=== PATIENT | female | born 1985 | race African-American/Black ===

== ENCOUNTER 2019-10-27 23:15 | Inpatient (IN) | payer OTHER ==
[2019-10-27] MEDS ORDERED: AMPICILLIN SODIUM 2 GM VIAL ONE (23:58)
--- NOTE | 2019-10-28 00:25 | HP ---
Past Medical History - Primary Care Physician PCP:: Tayo Null E - Admission Chief Complaint: In labor History of Present Illness: Uneventful gestation; at term. GBS pos in urine. [place]. 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: No: Alzheimer's, CVA, Dementia, Migraine, Multiple Sclerosis, Peripheral Neuropathy, Parkinson's, Seizure, Syncope, TIA, Vertigo, Other Cardiovascular: No: AFIB, Aneurysm, Aortic Insufficiency, Aortic Stenosis, CAD, CHF, Deep Vein Thrombosis, HTN, Hyperlipdemia, [place], Mitral Insufficiency, Mitral Stenosis, Murmur, Pulmonary Hypertension, Other Pulmonary: No: Asthma, Bronchitis, Cancer, COPD, O2 Dependent, Pneumonia, Previously Intubated, Pulmonary Embolus, Pulmonary Fibrosis, Sleep Apnea, Other Gastrointestinal: No: Ascites, Cancer, Constipation, Crohn's Disease, Diverticulitis, Diverticulosis, Esophageal Varices, Gastritis, GERD, GI Bleed, Hemorrhoids, Hiatal Hernia, Inflamatory Bowel Disease, Irritable Bowel Disease, Pancreatitis, Peptic Ulcer Disease, Ulcerative Colitis, Other Hepatobiliary: No: Cirrhosis, Cholelithiasis, Cholecystitis, Choledocholithiasis, Hepatitis A, Hepatitis B, Hepatitis C, Other Renal/: No: Renal Failure, Renal Inusuff, BPH, Cancer, Hematuria, Hemodialysis, Neurogenic Bladder, Renal Calculi, UTI, Other Reproductive: No: Ectopic , Endometriosis, Fibroids, PID, Polycystic Ovary Syndrome, Postmenopausal, Other ...Para: 1 Heme/Onc: No: Anemia, B12 Deficiency, Bleeding Disorder, Cancer, Current Chemotherapy, Current Radiation Therapy, Hemochromatosis, Hypercoaguable State, Myeloproliferative Synd, Sickle Cell Disease, Sickle Cell Trait, Thrombocytopenia, Other Infectious Disease: No: AIDS, C-Diff, Herpes Zoster, HIV, MRSA, STD's, Tuberculosis, VREF, Other Psych: No: Addictions, Anxiety, Bipolar, Depression, Panic, Psychosis, Schizophrenia, Other Musculoskeletal: No: Bursitis, Chronic low back pain, Hemiparesis, Hemiplegia, Osteoarthritis, Paraplegia, Other Rheumatology: No: Fibromyalgia, Gout, Lupus, Rheumatoid Arthritis, Sarcoidosis, Vasculitis, Other ENT: No: Allergic Rhinitis, Sinusitis, Other Endocrine: No: Deonte's Disease, Deerfield's Disease, Diabetes Insipidus, Diabetes Mellitus, Hyperparathyroidism, Hyperthyroidism, Hypothyroidism, Osteopenia, SIADH, Other - Past Surgical History Past Surgical History: No: None, AAA Repair, AICD, Amputation, Appendectomy, Arthrosocopy, AV Fistula/Graft, Bariatric Surgery, Breast Biopsy, Bypass, CABG, Carotid Endarterectomy, Cataract Removal, Cholecystectomy, Colectomy, Colonoscopy, Colostomy, Craniotomy, , Cystectomy, Hernia Repair, Hysterectomy, Ileal Conduit, Ileosotomy, Joint Replacement, Kidney Transplant, Laminectomy, Liver Transplant, Mastectomy, Nephrectomy, Oopherectomy, Orchiectomy, Permanent Pacemaker, Prostatectomy, Splenectomy, Stent, Thoracotomy, TURP, Tonsillectomy, Tubal Ligation, Upper Endoscopy, Valve Replacement, Vasectomy, Vein Stripping/Ligation Hx Myomectomy: No Hx Transabdominal Cerclage: No Family Medical History Family History: Unremarkable Review of Systems - Review of Systems Constitutional: reports: No Symptoms Eyes: reports: No Symptoms HENT: reports: No Symptoms Neck: reports: No Symptoms Cardiovascular: reports: No Symptoms Respiratory: reports: No Symptoms Gastrointestinal: reports: No Symptoms Genitourinary: reports: No Symptoms Breasts: reports: No Symptoms Reported Musculoskeletal: reports: No Symptoms Integumentary: reports: No Symptoms Neurological: reports: No Symptoms Endocrine: reports: No Symptoms Hematology/Lymphatic: reports: No Symptoms Psychiatric: reports: No Symptoms Physical Exam - Maternity Constitutional: Yes: Well Nourished, No Distress, Calm Eyes: Yes: WNL, Conjunctiva Clear, EOM Intact HENT: Yes: WNL, Atraumatic, Normocephalic Neck: Yes: WNL, Supple, Trachea Midline Cardiovascular: Yes: WNL, Regular Rate and Rhythm Breast(s): Yes: WNL - Abdominal Exam/OB Fundal Height: 39 Number of Fetuses: Single Presentation: Vertex Contractions: Yes Regularity: Regular Intensity: Mild Monitor Mode: External Heart Rate (range): 140 Heart Rate Location: RU Category: I Accelerations: Uniform Decelerations: None - Vaginal Exam/OB Vaginal Bleeding: No Dilatation (cm): 3 Effacement (%): 50 Amniotic Membrane Status: Intact Presentation: Vertex/Position Station: -1 - Physical Exam Musculoskeletal: Yes: WNL Integumentary: Yes: WNL ...Motor Strength: WNL Psychiatric: Yes: WNL Hemorrhage Risk Assessment - Risk Factors Medium Risk Factors: Yes: None High Risk Factors: Yes: None Risk Score: 1 Risk Level: Medium Risk Problem List - Problems (1) Active labor Code(s): [id number] - Assessment/Plan Attempted AROM; ? Observe. GBS prophylaxis started.
[2019-10-28 00:47] VITALS: BMI 27.9
[2019-10-28] MEDS ORDERED: PCA PUMP NR ONE (01:05)
[2019-10-28] MEDS ORDERED: FENTANYL/BUPIVACAINE/NS/PF - PCEA - 50 ML DISP.SYRIN EP ONE (01:05)
[2019-10-28 01:14] LABS: BASO % 0.8 % (0-2.0); EOS % 0.6 % (0-4.5); HEMATOCRIT 31.2 % (32.4-45.2); HEMOGLOBIN 10.2 GM/dL (10.7-15.3); LYMPH % 19.3 % (8-40); MCH 26.1 pg (25.7-33.7); MCHC 32.7 g/dl (32.0-36.0); MONO % 7.1 % (3.8-10.2); NEUT % 72.2 % (42.8-82.8); PLATELET COUNT 166 K/MM3 (134-434); RDW 15.3 % (11.6-15.6); WHITE BLOOD COUNT 9.7 K/mm3 (4.0-10.0)
[2019-10-28 01:22] LABS: INR 0.86 (0.83-1.09); PROTHROMBIN TIME (PATIENT) 10.1 SEC (9.7-13.0)
[2019-10-28 01:25] LABS: ACTIVATED PTT 20.3 SECONDS (25.2-36.5)
[2019-10-28] MEDS ORDERED: BUPIVACAINE HCL/PF 0.25% (2.5MG/ML) 10 ML VIAL ONE (01:25)
[2019-10-28 01:34] LABS: BLOOD UREA NITROGEN 7.3 mg/dL (7-18); CALCIUM 9.3 mg/dL (8.5-10.1); CREATININE 0.7 mg/dL (0.55-1.3); POTASSIUM 3.9 mmol/L (3.5-5.1)
[2019-10-28] MEDS ORDERED: NALOXONE HCL 0.4 MG/ML VIAL IVPUSH PRN (01:52)
[2019-10-28] MEDS ORDERED: FENTANYL/BUPIVACAINE/NS/PF - PCEA - 50 ML DISP.SYRIN EP SCH ×2 (02:00→03:04)
[2019-10-28] MEDS ORDERED: AMPICILLIN - 2 GM in SODIUM CHLORIDE 100 ML IVPB ONE ×2 (02:28→02:56)
[2019-10-28] MEDS ORDERED: OXYTOCIN 20 UNITS in 0.9% NS 20 UNIT/1,000 ML INFUS.BAG IV ONE (02:40)
--- NOTE | 2019-10-28 02:41 | PN ---
Progress Note, Labor Vaginal Exam #2 Labor Exam Date: 10/28/19 Labor Exam Time: 02:40 Heart Rate (range): 135 Dilatation: 10 Amniotic Membrane Status: Ruptured Presentation: Vertex/Position Station: +2 (SROM right after my attempt. Epidural in place. Will deliver soon.)
[2019-10-28] MEDS ORDERED: OXYTOCIN 30 UNITS in 0.9% NS 30 UNIT/500 ML INFUS.BAG IVPB ONE (03:00)
[2019-10-28] MEDS: OXYTOCIN 20 UNITS in 0.9% NS 20 UNIT/1,000 ML INFUS.BAG IV SCH (03:16)
[2019-10-28] MEDS ORDERED: BISACODYL 10 MG SUPP.RECT RC PRN (03:27)
[2019-10-28] MEDS ORDERED: BENZOCAINE 28 GM HEMORRHOIDAL OINTMENT TP PRN (03:27)
[2019-10-28] MEDS ORDERED: METHYLERGONOVINE MALEATE 0.2 MG/1 ML AMP IM PRN (03:27)
[2019-10-28] MEDS ORDERED: WITCH HAZEL 50% (TUCKS) 40 PAD/JAR PAD TP PRN (03:27)
[2019-10-28] MEDS ORDERED: BENZOCAINE 20% 57 GM BOTTLE TP PRN (03:27)
--- NOTE | 2019-10-28 03:27 | PN ---
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 Delayed cord clamping. No pain.
[2019-10-28] MEDS ORDERED: OXYTOCIN 20 UNITS in 0.9% NS 1000 ML INFUS.BAG IV ONE (03:28)
--- NOTE | 2019-10-28 07:21 | PN ---
Post Progress Note Post Day: 0 Type of Delivery: Vital Signs: Vital Signs Temperature 98.1 F 10/28/19 06:02 Pulse Rate 77 10/28/19 06:02 Respiratory Rate 20 10/28/19 06:02 Blood Pressure 112/71 10/28/19 06:02 O2 Sat by Pulse Oximetry (%) 100 10/28/19 04:30 Breast Exam: Yes: Soft Uterus: Yes: Fundus Firm Abdomen/GI: Yes: Abdomen soft Lochia: Yes: Rubra Lochia, amount: Moderate Extremities: Yes: Calves non-tender Perineum: Yes: Intact - Labs Labs: CBC WBC 9.7 K/mm3 (4.0-10.0) 10/27/19 23:59 RBC 3.90 M/mm3 (3.60-5.2) 10/27/19 23:59 Hgb 10.2 GM/dL (10.7-15.3) L 10/27/19 23:59 Hct 31.2 % (32.4-45.2) L 10/27/19 23:59 MCV 80.0 fl (80-96) 10/27/19 23:59 MCH 26.1 pg (25.7-33.7) 10/27/19 23:59 MCHC 32.7 g/dl (32.0-36.0) 10/27/19 23:59 RDW 15.3 % (11.6-15.6) D 10/27/19 23:59 Plt Count 166 K/MM3 (134-434) 10/27/19 23:59 MPV 11.0 fl (7.5-11.1) 10/27/19 23:59 Absolute Neuts (auto) 7.0 K/mm3 (1.5-8.0) 10/27/19 23:59 Neutrophils % 72.2 % (42.8-82.8) 10/27/19 23:59 Lymphocytes % 19.3 % (8-40) 10/27/19 23:59 Monocytes % 7.1 % (3.8-10.2) 10/27/19 23:59 Eosinophils % 0.6 % (0-4.5) 10/27/19 23:59 Basophils % 0.8 % (0-2.0) 10/27/19 23:59 Nucleated RBC % 0 % (0-0) 10/27/19 23:59 Problem List - Problems (1) Active labor Code(s): GYE0893 - (2) Normal course Code(s): Z39.2 - ENCOUNTER FOR ROUTINE FOLLOW-UP Assessment/Plan Doing well. Discharge tomorrow
[2019-10-28] MEDS: IBUPROFEN 600 MG TABLET (FP) PO PRN (21:45)
[2019-10-28] MEDS: ACETAMINOPHEN 325 MG TABLET (FP) PO PRN (21:47)
--- NOTE | 2019-10-28 22:48 | PN ---
Progress Note (short form) - Note Progress Note: VSS. Doing very well. PE is OK. Discharge in AM Problem List - Problems (1) Active labor Code(s): AWE9581 - (2) Normal course Code(s): Z39.2 - ENCOUNTER FOR ROUTINE FOLLOW-UP
--- NOTE | 2019-10-28 22:51 | DS ---
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 Vital Signs: Vital Signs Temperature 98.0 F 10/28/19 22:00 Pulse Rate 93 H 10/28/19 22:00 Respiratory Rate 18 10/28/19 22:00 Blood Pressure 144/80 10/28/19 22:00 O2 Sat by Pulse Oximetry (%) 100 10/28/19 04:30 Constitutional: Yes: Well Nourished, No Distress, Calm Eyes: Yes: WNL, Conjunctiva Clear, EOM Intact HENT: Yes: WNL, Atraumatic, Normocephalic Neck: Yes: WNL, Supple, Trachea Midline Cardiovascular: Yes: WNL, Regular Rate and Rhythm Respiratory: Yes: WNL, Regular, CTA Bilaterally Gastrointestinal: Yes: WNL ...Rectal Exam: Yes: WNL Renal/: Yes: WNL Breast(s): Yes: WNL Musculoskeletal: Yes: WNL Extremities: Yes: WNL Integumentary: Yes: WNL Neurological: Yes: WNL, Alert, Oriented ...Motor Strength: WNL Psychiatric: Yes: WNL, Alert, Oriented Labs: CBC, BMP 10/27/19 23:59 10/27/19 23:59 Delivery - Delivery Vaginal Delivery: No Problems Type of Anesthesia: Epidural Episiotomy/Laceration: None EBL (cc): 250 Delivery, Single - Stages of Labor Date 1st Stage Initiatied: 10/27/19 Time 1st Stage Initiated: 18:30 Date 2nd Stage Initiated: 10/28/19 Time 2nd Stage Initiated: 02:40 Date of Delivery: 10/28/19 Time of Delivery: 03:12 Time Placenta Delivered: 03:16 Placenta: Yes: Spontaneous, Normal Configuration - 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 Good spirits. Discharge in AM. Instructions given. Discharge Summary Problems reviewed: Yes Reason For Visit: LABOR Current Active Problems Active labor (Acute) Normal course (Acute) Hospital Course: Good. Condition: Good - Instructions Diet, Activity, Other Instructions: Physical activity Resume your normal everyday activity as tolerated no heavy lifting or exercise until seen by your surgeon. You may walk unlimited alicia of and climb stairs. You may resume driving the car when you feel safe and comfortable behind the wheel. No sexual activity as instructed. Wound care If you have a bandage, leave it on, and keep dry for 48-72 hours. After that time discard the outer bandage. If they are tapes on the skin under the out of bandage leave them in place. They will peel off in the next 7 to 10 days. Do Not Peel them off. You may shower the day after surgery. If there are tapes present on the skin, you may shower over them. Diet There are no dietary restrictions. Eat healthy, high-fiber foods. Drink 6 to 8 glasses of liquid each day. This will assist in keeping your bowels are regular. Pain management You may take Tylenol or acetaminophen or Ibuprofen (for example, Motrin, Advil etc.) from my pain prescription medication is ordered should be taken as prescribed for moderate to severe pain. Call MD for any of the following: Severe pain not relieved by medication Fever of 101 or higher Excessive bleeding or drainage on dressing Inability to urinate Disposition: HOME - Home Medications Comprehensive Discharge Medication List: Ambulatory Orders Vits96/Iron Fum/Folic [ Tablet] 1 each PO DAILY 10/28/19
[2019-10-29] MEDS: ACETAMINOPHEN 325 MG TABLET (FP) PO PRN ×2 (02:45→08:00)
[2019-10-29] MEDS: IBUPROFEN 600 MG TABLET (FP) PO PRN ×2 (02:46→08:01)
[2019-10-29] MEDS: OXYTOCIN 20 UNITS in 0.9% NS 20 UNIT/1,000 ML INFUS.BAG IV SCH (04:21)
[2019-10-29 08:39] LABS: EOS % 1.1 % (0-4.5); HEMATOCRIT 29.7 % (32.4-45.2); HEMOGLOBIN 9.6 GM/dL (10.7-15.3); LYMPH % 24.4 % (8-40); MCH 25.7 pg (25.7-33.7); MCHC 32.2 g/dl (32.0-36.0); MEAN CELL VOLUME 79.6 fl (80-96); MEAN PLT VOLUME 10.2 fl (7.5-11.1); MONO % 6.2 % (3.8-10.2); NEUT % 67.3 % (42.8-82.8); PLATELET COUNT 154 K/MM3 (134-434); RBC 3.73 M/mm3 (3.60-5.2); RDW 15.4 % (11.6-15.6); WHITE BLOOD COUNT 10.5 K/mm3 (4.0-10.0)
[2019-10-29 09:34] VITALS: BP 109/66; PULSE 82; TEMP 97.9
[2019-10-29] MEDS ORDERED: SENNOSIDES/DOCUSATE COMBO (SENNA PLUS) TABLET (UD) PO PRN (22:00)
== END 2019-10-29 10:20 | disposition home or self-care (01) | DRG 560 ==
LOC: JLDR 23:15 → J3W 10-28 05:41
PROVIDERS: ADMIT Specialist; ATTEND Specialist
PROC: 10E0XZZ Delivery of Products of Conception, External Approach (ICD-10-PCS; principal; 2019-10-28)
DX: O42.02 Full-term premature rupture of membranes, onset of labor within 24 hours of rupture (principal); O26.873 Cervical shortening, third trimester; Z37.0 Single live birth; O99.824 Streptococcus B carrier state complicating childbirth; Z3A.39 39 weeks gestation of pregnancy
CPT/HCPCS: 36415; 59409; 80048; 85025; 85610; 85730; 86780; 86850; 86900; 86901; 87389; U0003

== ENCOUNTER 2023-09-15 03:43 | Day surgery (SDC) | payer OTHER ==
[2023-09-14 15:32] VITALS: BMI 25.8
[~2023-09-15 03:43] MED LIST: LACTATED RINGERS SOLUTION 1,000 ML IV SCH; ONDANSETRON 4 MG/2 ML VIAL IVPUSH PRN; oxyCODONE HCL 5 MG TABLET PO PRN
[2023-09-15] MEDS ORDERED: SEVOFLURANE 250 ML BTL ONE (07:36)
[2023-09-15] MEDS ORDERED: KETOROLAC TROMETHAMINE 30 MG/1 ML VIAL ONE (07:37)
[2023-09-15] MEDS ORDERED: MIDAZOLAM HCL 2 MG/2 ML SINGLE DOSE VIAL ONE (07:37)
[2023-09-15] MEDS ORDERED: PROPOFOL 20 ML ONE ×2 (07:37→08:41)
[2023-09-15] MEDS ORDERED: DEXAMETHASONE SOD PHOSPHATE 4 MG/1 ML VIAL ONE (07:37)
[2023-09-15] MEDS ORDERED: ONDANSETRON 4 MG/2 ML VIAL ONE (07:37)
[2023-09-15] MEDS ORDERED: LIDOCAINE HCL/PF 2% SDV 5ML VIAL ONE (07:37)
[2023-09-15] MEDS ORDERED: ACETAMINOPHEN INJECTION 100 ML IVPB ONE (08:28)
[2023-09-15] MEDS ORDERED: FENTANYL CITRATE/PF 50 MCG/ML VIAL ONE (08:29)
[2023-09-15] MEDS ORDERED: ceFAZolin SODIUM 1 GM VIAL ONE (08:30)
[2023-09-15] MEDS: ceFAZolin SODIUM 1 GM VIAL IVPB ONE (08:40)
[2023-09-15] MEDS ORDERED: OXYTOCIN 10 UNITS/ML VIAL ONE (08:45)
[2023-09-15] MEDS ORDERED: ACETAMINOPHEN 325 MG TABLET (FP) PO PRN (08:57)
[2023-09-15] MEDS ORDERED: IBUPROFEN 400 MG TABLET (FP) PO PRN (08:57)
[2023-09-15] MEDS ORDERED: RHO(D) IMMUNE GLOBULIN 1,500 UNIT DISP.SYRIN IM ONE (08:59)
[2023-09-15 09:53] VITALS: RESP 18
[2023-09-15 11:09] VITALS: BP 107/80; PULSE 76; TEMP 96.8
== END 2023-09-15 11:10 | disposition home or self-care (01) ==
LOC: JASU-SURG 03:43
PROVIDERS: ATTEND Specialist
PROC: 10D17ZZ Extraction of Products of Conception, Retained, Via Natural or Artificial Opening (ICD-10-PCS; principal; 2023-09-15 08:00)
DX: O02.1 Missed abortion (principal)
CPT/HCPCS: 88305-TC; 94760; J0131